=== PATIENT | male | born 1940 | race Hispanic/Latino ===

== ENCOUNTER 2019-08-20 08:06 | Emergency (ER) | payer MEDICARE, OTHER ==
[~2019-08-20] VITALS: Ht 165.1 cm; Wt 74.8 kg
--- NOTE | 2019-08-20 09:04 | Diagnostic Imaging Report ---
Examination: Single AP view of the chest. COMPARISON: None. INDICATION: Shortness of breath, cough x1 week DISCUSSION: The lungs are well-inflated. There are patchy airspace opacities in the lung bases. No pleural effusion or pneumothorax. Small hiatal hernia is suspected. Cardiomediastinal contour otherwise within normal limits for portable, AP technique. No acute osseous abnormalities. IMPRESSION: Patchy bilateral lower lung airspace opacities may reflect atelectasis or infection. Signed by: Dr. Mike Santamaria M.D. on 08/20/2019 9:01 AM
[2019-08-20 09:15] LABS: BASOPHILS % 0.2 % (0.0-1.0); EOSINOPHILS # (AUTO) 0.3 (0.0-0.4); EOSINOPHILS % 4.6 % (0.0-6.0); HEMATOCRIT 36.5 % (38.2-49.6); HEMOGLOBIN 12.3 g/dL (14.0-18.0); LYMPHOCYTES # (AUTO) 0.6 (1.0-3.2); LYMPHOCYTES % 9.8 % (18.0-39.1); MEAN CORPUSCULAR HEMOGLOBIN 30.5 pg (28-32); MEAN CORPUSCULAR HGB CONC 33.7 g/dL (31-35); MEAN CORPUSCULAR VOLUME 90.6 fL (81-99); MONOCYTES # (AUTO) 0.5 (0.2-0.8); MONOCYTES % 7.6 % (4.4-11.3); NEUTROPHILS # (AUTO) 5.1 (2.1-6.9); NEUTROPHILS % 77.3 % (38.7-80.0); PLATELET COUNT 299 x10e3/uL (140-360); RED BLOOD COUNT 4.03 x10e6/uL (4.3-5.7); RED CELL DISTRIBUTION WIDTH 12.5 % (11.7-14.4)
[2019-08-20 09:41] LABS: PARTIAL THROMBOPLASTIN TIME 27.6 seconds (23.8-35.5)
[2019-08-20 09:49] LABS: ALANINE AMINOTRANSFERASE 65 IU/L (0-55); ALBUMIN 3.1 g/dL (3.5-5.0); ALBUMIN/GLOBULIN RATIO 0.7 (0.8-2.0); ALKALINE PHOSPHATASE 78 IU/L (40-150); ANION GAP 12.3 mmol/L (8-16); BLOOD UREA NITROGEN 15 mg/dL (7-26); BUN/CREATININE RATIO 14 (6-25); CARBON DIOXIDE 26 mmol/L (22-29); CHLORIDE 101 mmol/L (98-107); CREATINE KINASE 100 IU/L (30-200); EST GLOMERULAR FILTRATION RATE > 60 ML/MIN (60-); GLUCOSE 99 mg/dL (74-118); POTASSIUM 4.3 mmol/L (3.5-5.1); SODIUM 135 mmol/L (136-145)
[2019-08-20 10:05] LABS: INR 0.91; PROTHROMBIN TIME 12.8 seconds (11.9-14.5)
--- NOTE | 2019-08-20 11:51 | Emergency Department Note ---
History of Present Illnes History of Present Illness Chief Complaint: Respiratory History of Present Illness This is a 79 year old male s/o sob and mild non-productive cough x 1 week states just passed yesterday and has been anxious states when he gets up to get air he's fine but starts getting sob when he's sitting denies cp denies n/v/d denies figueroa/muscle aches/chills seen by dr che. 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: No Onset (how long ago): week(s) (1) Radiation: Reports non-radiation Severity: mild Onset quality: gradual Timing of current episode: intermittent Progression: worsening (seems slighly worse since yesterday - she was also sick for a week became severely SOB yesterday and brought by EMS to [facility] [place] but reportedly en route) Chronicity: new Relieving factors: none Exacerbating factors: none Associated symptoms: Reports cough, Reports shortness of breath Treatments prior to arrival: none Past Medical/Family History Physician Review I have reviewed the patient's past medical and family history. Any updates have been documented here. Past Medical History Recent Fever: No Clinical Suspicion of Infectio: No New/Unexplained Change in Ment: No Past Medical History: Hypertension Past Surgical History: Back Surgery Social History Smoking Cessation: Never Smoker Counseling Performed: No Alcohol Use: None Any Illegal Drug Use: No TB Exposure/Symptoms: No Physically hurt or threatened: No Family History Family history of heart diseas: No Other Any Pre-Existing Lines (PICC,: No Review of Systems Review of Systems Constitutional: Reports no symptoms EENTM: Reports no symptoms Cardiovascular: Reports no symptoms Respiratory: Reports as per HPI Gastrointestinal: Reports no symptoms Genitourinary: Reports no symptoms Musculoskeletal: Reports no symptoms Integumentary: Reports no symptoms Neurological: Reports no symptoms Psychological: Reports no symptoms Endocrine: Reports no symptoms Hematological/Lymphatic: Reports no symptoms Physical Exam Related Data Allergies: Coded Allergies: No Known Allergies (Unverified , 08/20/19) Triage Vital Signs Vital Signs Date Time Temp Pulse Resp B/P (MAP) Pulse Ox O2 Delivery O2 Flow Rate FiO2 08/20/19 08:19 98.0 78 18 160/75 99 Room Air Vital signs reviewed: Yes Physical Exam CONSTITUTIONAL Constitutional: Present well-developed, Present well-nourished HENT HENT: Present normocephalic, Present atraumatic, Present oropharynx clear/moist, Present nose normal HENT L/R: Present left ext ear normal, Present right ext ear normal EYES Eyes: Reports PERRL, Reports conjunctivae normal NECK Neck: Present ROM normal PULMONARY Pulmonary: Present effort normal, Present breath sounds normal CARDIOVASCULAR Cardiovascular: Present regular rhythm, Present heart sounds normal, Present capillary refill normal, Present normal rate GASTROINTESTINAL Abdominal: Present soft, Present nontender, Present bowel sounds normal GENITOURINARY Genitourinary: Present exam deferred SKIN Skin: Present warm, Present dry MUSCULOSKELETAL Musculoskeletal: Present ROM normal NEUROLOGICAL Neurological: Present alert, Present oriented x 3, Present no gross motor or sensory deficits PSYCHOLOGICAL Psychological: Present mood/affect normal, Present judgement normal Results Laboratory Result Diagram: 08/20/19 0829 08/20/19 0829 Laboratory Laboratory Tests Test 08/20/19 10:10 08/20/19 08:29 White Blood Count 6.54 x10e3/uL (4.8-10.8) Red Blood Count 4.03 x10e6/uL (4.3-5.7) Hemoglobin 12.3 g/dL (14.0-18.0) Hematocrit 36.5 % (38.2-49.6) Mean Corpuscular Volume 90.6 fL (81-99) Mean Corpuscular Hemoglobin 30.5 pg (28-32) Mean Corpuscular Hemoglobin Concent 33.7 g/dL (31-35) Red Cell Distribution Width 12.5 % (11.7-14.4) Platelet Count 299 x10e3/uL (140-360) Neutrophils (%) (Auto) 77.3 % (38.7-80.0) Lymphocytes (%) (Auto) 9.8 % (18.0-39.1) Monocytes (%) (Auto) 7.6 % (4.4-11.3) Eosinophils (%) (Auto) 4.6 % (0.0-6.0) Basophils (%) (Auto) 0.2 % (0.0-1.0) Neutrophils # (Auto) 5.1 (2.1-6.9) Lymphocytes # (Auto) 0.6 (1.0-3.2) Monocytes # (Auto) 0.5 (0.2-0.8) Eosinophils # (Auto) 0.3 (0.0-0.4) Basophils # (Auto) 0.0 (0.0-0.1) Absolute Immature Granulocyte (auto 0.03 x10e3/uL (0-0.1) Prothrombin Time 12.8 seconds (11.9-14.5) Prothromb Time International Ratio 0.91 Activated Partial Thromboplast Time 27.6 seconds (23.8-35.5) Sodium Level 135 mmol/L (136-145) Potassium Level 4.3 mmol/L (3.5-5.1) Chloride Level 101 mmol/L (98-107) Carbon Dioxide Level 26 mmol/L (22-29) Anion Gap 12.3 mmol/L (8-16) Blood Urea Nitrogen 15 mg/dL (7-26) Creatinine 1.10 mg/dL (0.72-1.25) Estimat Glomerular Filtration Rate > 60 ML/MIN (60-) BUN/Creatinine Ratio 14 (6-25) Glucose Level 99 mg/dL (74-118) Calcium Level 10.0 mg/dL (8.4-10.2) Total Bilirubin 0.5 mg/dL (0.2-1.2) Aspartate Amino Transf (AST/SGOT) 55 IU/L (5-34) Alanine Aminotransferase (ALT/SGPT) 65 IU/L (0-55) Alkaline Phosphatase 78 IU/L (40-150) Creatine Kinase 100 IU/L (30-200) Creatine Kinase MB 3.00 ng/mL (0-5.0) Troponin I 0.011 ng/mL (0-0.300) B-Type Natriuretic Peptide 11.3 pg/mL (0-100) Total Protein 7.6 g/dL (6.5-8.1) Albumin 3.1 g/dL (3.5-5.0) Globulin 4.5 g/dL (2.3-3.5) Albumin/Globulin Ratio 0.7 (0.8-2.0) Lab results reviewed: Yes Imaging Imaging results reviewed: Yes Impressions CXR IMPRESSION: Patchy bilateral lower lung airspace opacities may reflect atelectasis or infection. Procedures 12 Lead ECG Interpretation ECG Interpretation : ECG: ECG 1 Motor Vehicle Escort Driver: Interpreted by ED physician Date: Aug 20, 2019 Time: 08:24 Rhythm: sinus rhythm Rate: normal QRS axis: normal ST segments normal: Yes T waves normal: Yes Clinical Impression: normal ECG Assessment & Plan Medical Decision Making MDM cbc, chem's, bnp, ecg, cardiac enzymes, cxr, covid swab - r/o STEMI/NSTEMI, CHF, electrolyte abnl, COVID19/pneumonia Reassessment Reassessment YOU ARE BEING DISCHARGED WITH DIAGNOSIS OF VIRAL SYNDROME AND SUSPECT COVID 19 INFECTION. SELF QUARANTINE FOR THE NEXT 14 DAYS. TYLENOL FOR FEVER, TAKE PRESCRIPTIONS DIRECTED. RETURN TO ER FOR ANY CONCERNS OR ISSUES, RETURN TO ER IF YOU BECOME SHORT OF BREATH ESPECIALLY IF IT OCCURS WITH JUST TALKING. WHEN RESTING TRY TO LAY ON YOUR SIDE AND NOT YOUR BACK, ROTATE FROM SIDE TO SIDE EVERY 2 TO 3 HOURS Z-Pack, F/U with PCP Assessment & Plan Final Impression: (1) COVID-19 Depart Disposition: HOME, SELF-CARE Last Vital Signs Date Time Temp Pulse Resp B/P (MAP) Pulse Ox O2 Delivery O2 Flow Rate FiO2 08/20/19 08:19 98.0 78 18 160/75 99 Room Air CORA CHE MD Aug 20, 2019 11:51
== END 2019-08-20 12:17 | disposition home or self-care (01) ==
LOC: ER 08:49
DX: U07.1 COVID-19 (principal); R05 Cough; R06.02 Shortness of breath; I10 Essential (primary) hypertension
CPT/HCPCS: 36415; 71045; 80053; 82550; 82553; 83880; 84484; 85025; 85610; 85730; 87040; 93005; 99284; U0002